=== PATIENT | female | born 1970 | race Two or more races ===

== ENCOUNTER 2024-08-23 10:52 | Emergency (ER) | payer MEDICAID, SELFPAY ==
--- NOTE | 2024-08-23 10:58 | EKG_ITS ---
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
--- NOTE | 2024-08-23 11:05 | PD.EDRME ---
Rapid Medical Screening Exam RME Arrival date/time: 08/23/24 10:52 54-year-old female presents to the emergency department complains of back pain and chest pain which began last night Chief Complaint: Chest Pain Time Seen by Provider: 08/23/24 11:01
--- NOTE | 2024-08-23 11:06 | XR_ITS ---
Examination: PA lateral chest 2 views TECHNIQUE: Upright PA lateral chest 2 views Exam date and time: August 23, 2024 1137 hours INDICATIONS: Chest pain right-sided back pain beginning 2 days ago FINDINGS: Normal heart size Lungs are clear. The osseous structures are intact IMPRESSION: No active disease
[2024-08-23 11:09] VITALS: BP 117/78; PULSE 66; RESP 16; TEMP 36.8; O2SAT 99; BMI 25.9
[2024-08-23 11:37] LABS: Basophils # (Auto) 0.1 Thou/mm3 (0.0-0.2); Basophils % (Auto) 1 % (0-2.5); Eosinophils # (Auto) 0.4 Thou/mm3 (0.0-0.5); Eosinophils % (Auto) 6 % (0-10); Immature Granulocytes % (Auto) 0 % (0-0); Immature Granulocytes Auto 0.02 Thou/mm3 (0.00-0.00); Lymphocytes # (Auto) 2.5 Thou/mm3 (1.0-4.8); Lymphocytes % (Auto) 33 % (10-50); Mean Corpuscular Volume 89 fL (80-100); Monocytes # (Auto) 0.5 Thou/mm3 (0.0-0.8); Monocytes % (Auto) 6 % (0-12); Neutrophils # (Auto) 4.1 Thou/mm3 (1.8-7.7); Neutrophils % (Auto) 54 % (37-80); Nucleated Red Blood Cell % 0 /100 WBC (0); Platelet Count 287 Thou/mm3 (140-440); RDW Standard Deviation 38.9 fL (36.4-46.3); Red Blood Count 4.51 Miln/mm3 (4.00-5.20); White Blood Count 7.6 Thou/mm3 (3.6-11.0)
[2024-08-23 11:55] LABS: B-Type Natriuretic Peptide < 20 pg/mL (0-100)
[2024-08-23 11:57] LABS: Alanine Aminotransferase 21 U/L (10-49); Albumin, Serum 5.2 gm/dL (3.5-5.0); Albumin/Globulin Ratio 2.3 (1.2-2.2); Alkaline Phosphatase 79 U/L (46-116); Anion Gap 8 (7-16); Aspartate Amino Transferase 25 U/L (0-34); BUN/Creatinine Ratio 20 Ratio (12-20); Bilirubin,Total 0.6 mg/dL (0.3-1.2); Blood Urea Nitrogen 16 mg/dL (9-23); Calcium 10.4 mg/dL (8.3-10.6); Calcium (Corrected) 10.4 mg/dL (8.5-10.1); Carbon Dioxide 25.8 mMol/L (20.0-31.0); Chloride 104 mMol/L (98-107); Creatinine (Component) 0.8 mg/dL (0.6-1.3); Estimated Creatinine Clearance 63.8 mL/min (>60); Globulin 2.3 gm/dL (2.3-3.5); Glucose 83 mg/dL (74-106); Osmolality,Calculated 275 (275-295); Potassium 4.1 mMol/L (3.4-5.1); Sodium 138 mMol/L (136-145); Total Protein 7.5 gm/dL (5.7-8.2); Troponin I < 0.002 ng/mL (0.0-0.045); eGFR > 60 See Note
--- NOTE | 2024-08-23 12:13 | PC.NURSE ---
Patient presents to ER with sharp stabbing chest pain pressure 9/10 starting at 2400. Pain bacame worse this morning when she went to work. Hx diabetes2, HTN, and high cholesterol. States pain radiates from right chest to left arm where fringer have become tingly .
--- NOTE | 2024-08-23 12:39 | XR_ITS ---
Examination: CT brain head without contrast. 2-D sagittal coronal reconstructions Date and time of exam:August 23, 2024 1326 hours INDICATIONS: Onset headaches dizziness beginning this morning CTDI: vol (mGy):48.4 DLP: (mGycm):991 Technique: Multiple CT axial sections of the brain have been obtained, 5 mm slice thickness. Contrast has not been administered. 2-D sagittal, coronal reconstructions have been obtained Low dose protocols were performed. One or more of the following dose reduction techniques were used; automated exposure control, adjustment of the mA and/or KV according to patient size, use of iterative reconstruction technique. Findings: No significant ventricular enlargement. Intra-axial or extra-axial hemorrhage density is not seen. No mass effect or midline shift Basal cisterns are not remarkable. Fourth ventricle is midline. Cranial vault intact. Impression: Negative for acute hemorrhage, mass effect or midline shift Acute bilateral maxillary antral sinusitis Significant chronic ethmoid sinusitis Advise clinical correlation follow-up accordingly
--- NOTE | 2024-08-23 12:40 | EDNOTE_ITS ---
ED Chest Pain RME/HPI General Chief Complaint: Chest Pain Stated Complaint: Chest tightness since last night Time Seen by Provider: 08/23/24 11:01 Arrival date/time: 08/23/24 10:52 RME / HPI RME / HPI narrative: 54-year-old female presents to the emergency department complains of back pain and chest pain which began last night, location left posterior upper chest pain, described as sharp, radiating to the left chest. Patient also complained of headache and dizziness since earlier this morning, severity mild. Patient is denying any slurring of speech, denies any upper or lower extremity weakness. Patient also complaining of tingling sensation to the left fingers. Also complained of maxillary sinus congestion for more than a week now. Severity moderate. No medication was given prior to arrival. Related Data Home Medications ?Medication ?Instructions ?Recorded ?Confirmed Buspirone * (BUSPAR *) 7.5 mg PO BID Anxiety #0 tabs 07/02/15 ergocalciferol (vitamin D2) 1,250 50,000 unit PO QWEEK SUPPLEMENT #0 07/02/15 mcg (50,000 unit) capsule (Vitamin caps D2) ferrous sulfate 325 mg (65 mg 325 mg PO BIDWM SUPPLEMENT #0 tabs 07/02/15 iron) tablet (Feosol) fluoxetine 40 mg capsule (Prozac) 40 mg PO QAM DEPRESSION #0 caps 07/02/15 glipizide 2.5 mg tablet, extended 5 mg PO BIDWM DIABETES #0 tabs 07/02/15 release 24 hr (Glucotrol XL) ibuprofen 800 mg tablet 800 mg PO TID PRN PAIN #0 tabs 07/02/15 simvastatin 10 mg tablet (Zocor) 10 mg PO HS CHOLESTEROL #0 tabs 07/02/15 Flurazepam * (DALMANE *) 15 mg PO HSPRN PRN INSOMNIA #0 caps 05/22/16 amoxicillin 500 mg capsule 500 mg PO TID #0 caps 05/22/16 lisinopril 10 mg tablet 10 mg PO QDAY High Blood Pressure 05/22/16 #0 tabs meclizine 25 mg tablet (Antivert) 25 mg PO HSPRN PRN VERTIGO #0 tabs 05/22/16 potassium chloride 8 mEq 1 tab PO QDAY ##0 05/22/16 tablet,extended release (Klor-Con) Previous Rx's ?Medication ?Instructions ?Recorded Hydrocodone/Acetaminophen * (NORCO 1 tab PO Q6H PRN pain #8 tabs 05/22/16 5/325 *) omeprazole 20 mg capsule,delayed 20 mg PO QDAY 7 days ##0 05/24/16 release amoxicillin 875 mg-potassium 1 tab PO BID #14 tabs 08/23/24 clavulanate 125 mg tablet ibuprofen 600 mg tablet 600 mg PO TID PRN pain #30 tabs 08/23/24 Allergies Allergy/AdvReac Type Severity Reaction Status Date / Time NKA* Allergy Uncoded 05/24/16 17:50 Review of Systems Review of Systems Narrative Review of Systems: Review of system reviewed and within normal limits except mentioned in HPI ED Exam Narrative Physical exam: VITAL SIGNS: Reviewed. GENERAL APPEARANCE: Alert and interactive, follows commands, no acute distress, HEAD AND FACE: Non-traumatic. ENT: PERRL, pink conjunctivitis, eyelid no trauma, Mucous membrane moist. NECK: Supple, nontender, no nuchal rigidity. CHEST: No tenderness, no crepitus, no paradoxical movement, no retractions. LUNGS: Clear, well ventilated, symmetric, no rales, no wheezing, no ronchi, no stridor, good breath sounds bilaterally. HEART: Regular rate, regular rhythm, no murmur, no gallops. ABDOMEN: Soft, positive bowel sounds, nondistended, no guarding, nontender, no rebound, no masses, RECTAL: Deferred. GENITAL: Deferred. NEUROLOGICAL: Gross motor function intact sensory function intact, Appropriate for age. MUSCULOSKELETAL: low back nontender, full range of motion. EXTREMITIES: Nontender, full range of motion. SKIN: Color pink, dry, no rash, no lacerations, no abrasions, no contusions. LYMPHATICS: Deferred. Course Quality Measures none Orders Category Date Time Status EKG (ED ONLY) *Do not use* NOW Care 08/23/24 10:[address] head/brain wo con Stat Exams 08/23/24 12:39 Completed EKG (ED Only) Stat Exams 08/23/24 10:58 Draft XR chest 2V Stat Exams 08/23/24 11:06 Completed B-Type Natriuretic Peptide Stat Lab 08/23/24 11:15 Completed CBC Stat Lab 08/23/24 11:15 Completed Comprehensive Metabolic Panel Stat Lab 08/23/24 11:15 Completed Troponin I Stat Lab 08/23/24 11:15 Completed Troponin I Stat Lab 08/23/24 14:18 Completed Acetaminophen Tab [Tylenol ES Tab] Med 08/23/24 12:39 Discontinued 1,000 mg PO X1 ONE Vital Signs Vital signs: Vital Signs Temperature 98.3 F 08/23/24 11:09 Pulse Rate 66 08/23/24 11:09 Respiratory Rate 16 08/23/24 11:09 Blood Pressure 117/78 08/23/24 11:09 Pulse Oximetry (%) 99 08/23/24 11:09 Oxygen Delivery Method Room Air 08/23/24 11:09 Chest Pain MDM Narrative MDM Narrative:: 54-year-old female presents to the emergency department complains of back pain and chest pain which began last night, location left posterior upper chest pain, described as sharp, radiating to the left chest. Patient also complained of headache and dizziness since earlier this morning, severity mild. Patient is denying any slurring of speech, denies any upper or lower extremity weakness. Patient also complaining of tingling sensation to the left fingers. Also complained of maxillary sinus congestion for more than a week now. Severity moderate. No medication was given prior to arrival. CT scan of the head came back with acute on chronic maxillary sinusitis, chronic ethmoidal sinusitis, no other abnormality noted. EKG troponin x 2 all came back unremarkable. Chest x-ray came back unremarkable. The rest of the labs unremarkable patient told me that her posterior chest pain is totally gone after patient received medications. Results discussed with the patient. Patient data External records reviewed:: [facility] previous records and None Clinical information provided by:: patient and family Social determinants that could affect healthcare access:: none Patient has the following chronic illnesses:: None How is presenting disease/condition affected by chronic disease/condition?: uneffected by Evaluation data The following diagnostics were reviewed and interpreted by me:: lab results Lab and/or radiology exams considered but not ordered:: None Interpretation Summary: CT scan of the head came back with acute on chronic maxillary sinusitis, chronic ethmoidal sinusitis, no other abnormality noted. EKG troponin x 2 all came back unremarkable. Chest x-ray came back unremarkable. The rest of the labs unremarkable patient told me that her posterior chest pain is totally gone after patient received medications. Results discussed with the patient. EKG showed sinus rhythm, ventricular rate of 65 bpm, no ST segment elevation depression noted. Medications / Prescriptions Medications or Prescriptions considered but not ordered:: None Medication administrations:: Medication Administration History Discontinued Medications Acetaminophen (Acetaminophen 500 Mg Tablet) 1,000 mg PO X1 ONE Stop: 08/23/24 12:40 Last Admin: 08/23/24 12:50 Dose: 1,000 mg Documented By: PAIGE Tylnavi Consultations Consultation(s) initiated? (list below): No Diagnosis Chest Pain Differential Diagnosis: chest pain and other (Sinusitis, chest pain muscular) Most likely diagnosis given after review of the tests above:: Sinusitis, chest pain muscular Admission Indicated Admission indicated?: not indicated Admission Request Was there a request for admission?: No Disposition Plan Disposition Plan: Discharge Discharge Attestation Discharge Attestation: The patient and all family members were given an opportunity to ask questions and understood the discharge instructions. Discharge instructions specifically effects, indications for sooner follow up or return to the emergency department, and the expected course of current diagnosis. Patient condition: Stable Discharge Plan Plan Patient Disposition: HOME (Self Care) Disposition Comment: stable Prescriptions/Referrals Prescriptions/Med Rec: New amoxicillin-pot clavulanate 875-125 mg tablet 1 tab PO BID Qty: 14 0RF ibuprofen 600 mg tablet 600 mg PO TID PRN (Reason: pain) Qty: 30 0RF No Action fluoxetine [Prozac] 40 MG capsule 40 mg PO QAM Qty: 0 ibuprofen 800 MG tablet 800 mg PO TID PRN (Reason: PAIN) Qty: 0 simvastatin [Zocor] 10 MG tablet 10 mg PO HS Qty: 0 glipizide [Glucotrol XL] 2.5 MG/BOTTLE tablet extended release 24 hr 5 mg PO BIDWM Qty: 0 ferrous sulfate [Feosol] 1 TAB tablet 325 mg PO BIDWM Qty: 0 ergocalciferol (vitamin D2) [Vitamin D2] 50,000 UNIT capsule 50,000 unit PO QWEEK Qty: 0 Patient Comments: TAKE ON MONDAYS Buspirone * (BUSPAR *) 15 MG tablet 7.5 mg PO BID Qty: 0 amoxicillin 500 MG capsule 500 mg PO TID Qty: 0 potassium chloride [Klor-Con 8] 8 mEq tablet extended release 1 tab PO QDAY Qty: 0 meclizine [Antivert] 25 MG tablet 25 mg PO HSPRN PRN (Reason: VERTIGO) Qty: 0 lisinopril 10 MG tablet 10 mg PO QDAY Qty: 0 Flurazepam * (DALMANE *) 15 MG capsule 15 mg PO HSPRN PRN (Reason: INSOMNIA) Qty: 0 Hydrocodone/Acetaminophen * (NORCO 5/325 *) 1 TAB tablet 1 tab PO Q6H PRN (Reason: pain) Qty: 8 0RF omeprazole 20 MG capsule,delayed release(DR/EC) 20 mg PO QDAY 7 Days Qty: 0 0RF Referrals: Federico Alegria FNP [Primary Care Provider] - In 1 week Problem List Clinical Impression: Chest pain, Acute maxillary sinusitis Patient/Caregiver Discharge Instructions Education Materials: Causes of Sinusitis Additional Instructions: Thank you for the opportunity for serving you today. You are stable for discharged . You are advised to: Follow-up with your PCP in 1 to 2 days Return to ED for worsening of symptoms Increase oral fluids Take medication as prescribed Print Language: Gabonese Stand Alone Forms: Samreen Award Info., Patient Portal Info Letter ADELA/RIGO Supervising Physician ADELA/RIGO Supervising Physician: MD Marco Antonio
[2024-08-23] MEDS: ACETAMINOPHEN 500 MG TABLET 1000 MG PO (12:50)
[2024-08-23 13:21] VITALS: BP 132/88; PULSE 72; RESP 19; TEMP 36.6; O2SAT 100
[2024-08-23 14:49] LABS: Troponin I < 0.002 ng/mL (0.0-0.045)
--- NOTE | 2024-08-23 14:56 | PC.NURSE ---
EMS in ER to [facility] pick[facility] patient who ambulated EMS dorothy and got in. Second report given to RN at [facility].
[2024-08-23 15:01] VITALS: BP 118/80; PULSE 74; RESP 16; O2SAT 98
--- NOTE | 2024-08-23 15:16 | PC.NURSE ---
Patient states pain 9/10. Informed ER provider and received verbal order pain medication.
[2024-08-23] MEDS: KETOROLAC INJ 60 MG/2 ML VIAL 15 MG IM (15:35)
[2024-08-23] MEDS: MORPHINE SULF INJ 10 MG/ML VIAL 4 MG IM (15:36)
== END 2024-08-23 16:33 | disposition home or self-care (01) ==
PROVIDERS: Nurse Practitioner Family; Nurse Practitioner Primary Care; Emergency Provider Emergency Medicine; PCP Nurse Practitioner Family
DX: R07.89 Other chest pain (principal); J01.00 Acute maxillary sinusitis, unspecified; J32.8 Other chronic sinusitis; R94.31 Abnormal electrocardiogram [ECG] [EKG]
CPT/HCPCS: 36415; 70450; 71046; 80053; 83880; 84484; 85025; 93005; 96372; 99284; J1885; J2270; A9270

== ENCOUNTER → 2025-05-06 | Outpatient (CLI) | payer MEDICAID, SELFPAY ==
--- NOTE | 2025-05-06 15:00 | XR_ITS ---
Examination: Screening digital mammography, bilateral Computer aided detection 3-D breast Tomosynthesis, bilateral Date and time of exam: May 06, 2025 1454 hours Compared to mammograms dating to September 2015 Indication: Screening Technique: Nonmagnified MLO, CC views of the breasts to been obtained, reconstructed from 3-D Tomosynthesis images. R2 computer aided detection program utilized for evaluation of suspicious masses and/or abnormal calcifications. 3-D Tomosynthesis images obtained. Findings: Scattered areas of fibroglandular density. Benign calcifications No interval suspicious masses Impression: BI-RADS category II: Benign Findings. Recommend 1 year follow-up mammogram.
== END | disposition home or self-care (01) ==
LOC: CDIM 14:44
DX: Z12.31 Encounter for screening mammogram for malignant neoplasm of breast (principal); R92.323 Mammographic fibroglandular density, bilateral breasts; R92.1 Mammographic calcification found on diagnostic imaging of breast
CPT/HCPCS: 77063; 77067

== ENCOUNTER → 2025-06-06 | Outpatient (CLI) | payer MEDICAID, SELFPAY ==
--- NOTE | 2025-06-06 16:30 | XR_ITS ---
Examination: CT chest, without intravenous contrast. Sagittal and coronal 2-D reconstructions. Exam date and time: June 06, 2025 1653 hrs. Indications: Smoking history 30 years lung screening study CTDI:vol (mGy) 10.8 DLP: (mGycm) 340 Technique: Multiple 3.0 mm axial sections of the chest to been obtained. Bone and lung density settings are obtained. Sagittal and coronal 2-D reconstructions have been obtained. Low dose protocols were performed. One or more of the following dose reduction techniques were used; automated exposure control, adjustment of the mA and/or KV according to patient size, use of iterative reconstruction technique. Findings: No thoracic aortic aneurysm dilatation Pulmonary artery segments are not enlarged. Mild calcification left anterior descending coronary artery No paratracheal tracheobronchial or bronchopulmonary adenopathy No pneumonia or pulmonary edema or pleural disease No visualized liver or splenic lesion No gallstones Kidneys partially visualized no hydronephrosis Impression: No mediastinal lymphadenopathy No pneumonia, pulmonary edema, pleural disease or pulmonary nodules
== END | disposition home or self-care (01) ==
DX: Z12.2 Encounter for screening for malignant neoplasm of respiratory organs (principal)
CPT/HCPCS: 71271